=== PATIENT | male | born 1960 | race Caucasian/White ===

== ENCOUNTER 2020-09-02 12:05 | Emergency (ER) | payer OTHER ==
[2020-09-02 14:58] LABS: HEMOGLOBIN 16.9 gm/dl (14.0-17.5); RED BLOOD COUNT 5.18 M/UL (4.20-5.50); WHITE BLOOD COUNT 10.2 K/UL (4.5-11.0)
[2020-09-02 15:23] LABS: BUN/CREATININE RATIO 17 (0-10)
[2020-09-02] MEDS ORDERED: BENTYL 20MG TAB20 MG PO (15:42)
[2020-09-02] MEDS ORDERED: HYDROXYZINE HCL50 MG PO (15:42)
== END 2020-09-02 17:03 | disposition home or self-care (01) ==
LOC: ER1 12:05
PROVIDERS: Family Medicine
DX: F11.13 Opioid abuse with withdrawal (principal); R03.0 Elevated blood-pressure reading, without diagnosis of hypertension; F41.9 Anxiety disorder, unspecified; G47.00 Insomnia, unspecified; Z90.89 Acquired absence of other organs; F17.200 Nicotine dependence, unspecified, uncomplicated
CPT/HCPCS: 80053; 82550; 82553; 83874; 84484; 85025; 93005; 96372; 99284; J3410

== ENCOUNTER 2020-09-04 11:23 | Inpatient (IN) | payer BC ==
[~2020-09-04] VITALS: Ht 180.3 cm; Wt 81.6 kg
[~2020-09-04 11:23] MED LIST: BENTYL 20MG TAB20 MG PO; HYDROXYZINE HCL50 MG PO
[2020-09-04 13:39] LABS: HEMOGLOBIN 17.6 gm/dl (14.0-17.5); RED BLOOD COUNT 5.32 M/UL (4.20-5.50)
[2020-09-04 13:40] LABS: WHITE BLOOD COUNT 14.8 K/UL (4.5-11.0)
[2020-09-04 14:08] LABS: BUN/CREATININE RATIO 34 (0-10)
[2020-09-04] MEDS ORDERED: BENTYL 20MG TAB20 MG PO (16:43)
[2020-09-04] MEDS ORDERED: HYDROXYZINE HCL50 MG PO (16:45)
[2020-09-05 06:35] LABS: WHITE BLOOD COUNT 15.7 K/UL (4.5-11.0)
[2020-09-05 06:43] LABS: HEMOGLOBIN 15.4 gm/dl (14.0-17.5); RED BLOOD COUNT 4.76 M/UL (4.20-5.50)
[2020-09-05 07:27] LABS: BUN/CREATININE RATIO 55 (0-10)
[2020-09-05 12:06] LABS: HEMOGLOBIN 14.6 gm/dl (14.0-17.5)
[2020-09-05 20:10] LABS: HEMOGLOBIN 13.1 gm/dl (14.0-17.5)
[2020-09-06 03:51] LABS: HEMOGLOBIN 11.8 gm/dl (14.0-17.5); RED BLOOD COUNT 3.69 M/UL (4.20-5.50)
[2020-09-06 04:11] LABS: BUN/CREATININE RATIO 36 (0-10)
[2020-09-06 12:25] LABS: HEMOGLOBIN 10.6 gm/dl (14.0-17.5)
[2020-09-07] MEDS ORDERED: ZOFRAN 4 MG TAB4 MG PO (10:33)
[2020-09-07] MEDS ORDERED: CLARITHROMYCIN500 M1 PO (10:33)
[2020-09-07] MEDS ORDERED: PROTONIX40 MG PO (10:33)
[2020-09-07] MEDS ORDERED: AMOXICILLIN500 MG PO (10:33)
[2020-09-07] MEDS ORDERED: MULTI-DAY PLUS1 EACH PO (10:36)
[2020-09-07 11:47] LABS: BUN/CREATININE RATIO 19 (0-10)
--- NOTE | 2020-09-07 18:13 | NUR ---
[address] GALLAGHER REGARDING THE PT DISCHARGE RX FOR [facility] IS OUT OF STOCK WITH THE EXTENDED RELEASE ATTEMPTED [facility] NONE IN STOCK, DR. GALLAGHER CHANGED SCRIPT TO REGULAR RELEASE [facility] MADE AWARE
== END 2020-09-07 12:45 | disposition home or self-care (01) | DRG 371 ==
LOC: ER1 11:23 → M/S 16:11 → CDU 16:11 → M/S 17:31
PROVIDERS: Emergency Medicine; Internal Medicine; Physician Assistant Medical; ADMIT Internal Medicine
PROC: 0DB58ZX Excision of Esophagus, Via Natural or Artificial Opening Endoscopic, Diagnostic (ICD-10-PCS; principal; 2020-09-04)
PROC: 0DB78ZX Excision of Stomach, Pylorus, Via Natural or Artificial Opening Endoscopic, Diagnostic (ICD-10-PCS; 2020-09-04)
DX: A04.8 Other specified bacterial intestinal infections (principal); K26.4 Chronic or unspecified duodenal ulcer with hemorrhage; D62 Acute posthemorrhagic anemia; K21.9 Gastro-esophageal reflux disease without esophagitis; Z20.822 Contact with and (suspected) exposure to COVID-19; F14.10 Cocaine abuse, uncomplicated; E86.0 Dehydration; I10 Essential (primary) hypertension; D75.1 Secondary polycythemia
CPT/HCPCS: 36415; 71045; 80048; 80053; 82550; 82553; 83605; 83690; 83735; 83874; 84484; 85014; 85018; 85025; 85027; 85610; 85730; 93005; 93971; 96372; 99284; 99285; C9113; J2405; J2704; J3410; J7030; J7040; Q9967; U0002